=== PATIENT | male | born 2000 | race Caucasian/White ===

== ENCOUNTER 2019-02-11 22:03 | Emergency (ER) | payer OTHER ==
--- OUTSIDE RECORDS SUMMARY | 2019-02-11 22:36 | XMS REPORT | Continuity of Care Document ---
:2000 External Reference #:[id number] Author Name Melissa Moreno Care Team Providers Name Role Phone [facility] Primary Care Physician Unavailable Payers Date Identification Numbers Payment Provider Subscriber Policy Number: [id number] [employer] Student [employer] Jose Hunt PayID: [id number] [address] [place] [address] Advance Directives Description No Information Available Problems Description No Information Family History Date Family Member(s) Observation Comments General Cancer Social History Type Date Description Comments Sex Unknown Lives With Roommate Occupation Student ETOH Use Weekly Alcohol 10 drinks Tobacco Use Start: Unknown Patient has never smoked Smoking Status Reviewed: 01/15/19 Patient has never smoked Allergies, Adverse Reactions, Alerts Description No Known Drug Allergies Medications Description No Active Medications Immunizations Description No Information Available Vital Signs Date Vital Result Comment 01/15/2019 1:50pm Height 72 inches 6'0" Weight 190.00 lb Heart Rate 67 /min BP Systolic Sitting 118 mmHg BP Diastolic Sitting 88 mmHg Respiratory Rate 14 /min Pain Level 8 BMI (Body Mass Index) 25.8 kg/m2 Height Percentile 81 % Weight Percentile 89th Results Description No Information Available Procedures Description No Information Available Encounters Description No Information Available Plan of Treatment Future Appointment(s):02/14/2019 1:45 pm - Martin Modi MD at [facility]01/15/2019 - Martin Modi [id number] Sprain of other ligament of right ankle, initial encounterNew Therapy:Physical TherapyFollow up: Follow Up: 1 month
--- OUTSIDE RECORDS SUMMARY | 2019-02-11 22:36 | XMS REPORT | Continuity of Care Document ---
:2000 External Reference #:[id number] Author Name Melissa Moreno Care Team Providers Name Role Phone [facility] Primary Care Physician Unavailable Payers Date Identification Numbers Payment Provider Subscriber Policy Number: [id number] [employer] Student [employer] Jose Hunt PayID: [id number] [address] [place] [address] Advance Directives Description No Information Available Problems Description No Information Family History Date Family Member(s) Observation Comments General Cancer Social History Type Date Description Comments Sex Unknown Lives With Roommate Occupation Student ETOH Use Weekly Alcohol 10 drinks Tobacco Use Start: Unknown Patient has never smoked Smoking Status Reviewed: 01/31/19 Patient has never smoked Allergies, Adverse Reactions, Alerts Active Allergies Reaction Severity Comments Date Penicillin 01/31/2019 Inactive Allergies NKDA 01/15/2019 Medications Description No Active Medications Immunizations Description No Information Available Vital Signs Date Vital Result Comment 01/31/2019 2:23pm Height 72 inches 6'0" Weight 200.00 lb Heart Rate 83 /min BP Systolic Sitting 144 mmHg BP Diastolic Sitting 88 mmHg Respiratory Rate 14 /min Pain Level 0 BMI (Body Mass Index) 27.1 kg/m2 Height Percentile 81 % Weight Percentile 93rd 01/15/2019 1:50pm Height 72 inches 6'0" Weight 190.00 lb Heart Rate 67 /min BP Systolic Sitting 118 mmHg BP Diastolic Sitting 88 mmHg Respiratory Rate 14 /min Pain Level 8 BMI (Body Mass Index) 25.8 kg/m2 Height Percentile 81 % Weight Percentile 89th Results Description No Information Available Procedures Description No Information Available Encounters Type Date Location Provider Dx Diagnosis Office Visit 01/15/2019 [facility] Martin Modi [id number] Sprain of other [facility] of right ankle, initial encounter Plan of Treatment 01/15/2019 - Martin Moid [id number] Sprain of other ligament of right ankle, initial encounterNew Therapy:Physical TherapyFollow up:Follow Up: 1 month
--- NOTE | 2019-02-11 22:40 | ED ---
Palpitations / Dysrhythmia - HPI Summary HPI Summary: 18-year-old male presents with palpitation today. He states he was sitting in his room and felt that his heart was racing. He states he felt short of breath. Denies any chest pain. He states he feels tingly all over. This has never happened before. He has no medical illnesses. He denies any family history cardiac disease. Denies any drug or alcohol use. He states he now just feels numbness tingling in extremities. He did have a previous fracture to his leg about a month ago. His palpitations have resolved but he states just feels off. He denies any bowel pain. denies any fevers. No other symptoms. Hasn't taking anything for his symptoms. no SI or HI. states numbness and tingling is worst when he takes a deep breath. - History of Current Complaint Chief Complaint: EDDysrhythmPalp Time Seen by Provider: 02/11/19 22:11 - Allergy/Home Medications Allergies/Adverse Reactions: Allergies Allergy/AdvReac Type Severity Reaction Status Date / Time Penicillins Allergy Rash Verified 02/11/19 22:05 Home Medications: Home Medications NK [No Home Medications Reported] 02/11/19 [History Confirmed 02/11/19] PMH/Surg Hx/FS Hx/Imm Hx Endocrine/Hematology History: Denies: Hx Anticoagulant Therapy Cardiovascular History: Denies: Hx Hypertension - Immunization History Date of Tetanus Vaccine: utd Date of Influenza Vaccine: fall 2017 Infectious Disease History: No Infectious Disease History: Denies: Traveled Outside the [place] in Last 30 Days - Family History Known Family History: Negative: Cardiac Disease - Social History Alcohol Use: Weekly Substance Use Type: Reports: Excessive Caffeine Smoking Status (MU): Light Every Day Tobacco Smoker Review of Systems Negative: Fever Positive: Palpitations. Negative: Chest Pain Positive: Shortness Of Breath. Negative: Cough All Other Systems Reviewed And Are Negative: Yes Physical Exam Triage Information Reviewed: Yes Vital Signs On Initial Exam: Initial Vitals Temp Pulse Resp BP Pulse Ox 99.1 F 84 18 161/91 97 02/11/19 22:04 02/11/19 22:04 02/11/19 22:04 02/11/19 22:04 02/11/19 22:04 Vital Signs Reviewed: Yes Appearance: Positive: Well-Appearing Skin: Positive: Warm, Dry Head/Face: Positive: Normal Head/Face Inspection Eyes: Positive: Normal, Conjunctiva Clear ENT: Positive: Pharynx normal Respiratory/Lung Sounds: Positive: Clear to Auscultation, Breath Sounds Present Cardiovascular: Positive: Normal, RRR Abdomen Description: Positive: Nontender, Soft Bowel Sounds: Positive: Present Musculoskeletal: Positive: Normal Neurological: Positive: Normal Psychiatric: Positive: Anxious Diagnostics - Vital Signs Vital Signs Temp Pulse Resp BP Pulse Ox 02/11/19 22:04 99.1 F 84 18 161/91 97 - Laboratory Result Diagrams: 02/11/19 22:36 02/11/19 22:36 Lab Statement: Any lab studies that have been ordered have been reviewed, and results considered in the medical decision making process. - EKG No standard instances Cardiac Rate: NL EKG Rhythm: Sinus Rhythm Summary of EKG Findings: sinus rhythm Course/Dx - Course Course Of Treatment: 18-year-old male presents with palpitation today. He states he was sitting in his room and felt that his heart was racing. He states he felt short of breath. Denies any chest pain. He states he feels tingly all over. This has never happened before. He has no medical illnesses. He denies any family history cardiac disease. Denies any drug or alcohol use. He states he now just feels numbness tingling in extremities. He did have a previous fracture to his leg about a month ago. His palpitations have resolved but he states just feels off. He denies any bowel pain. denies any fevers. No other symptoms. Hasn't taking anything for his symptoms. On exam has normal exam but appears anxious. EKG shows sinus rhythm. wbc normal. potassium normal. troponin zero. d-dimer normal. magnesium low so gave supplement. thyroid normal. symptoms likely due to anxiety. patient understand and agrees with plan. - Diagnoses Differential Diagnosis/HQI/PQRI: Positive: Panic Disorder, Paroxymal SVT, Pulmonary Embolism Provider Diagnoses: Palpitations Discharge - Sign-Out/Discharge Documenting (check all that apply): Patient Departure Patient Received Moderate/Deep Sedation with Procedure: No - Discharge Plan Condition: Good Disposition: HOME Patient Education Materials: Heart Palpitations (ED) Referrals: No Primary Care Phys,NOPCP [Primary Care Provider] - Additional Instructions: symptoms likely due to anxiety Follow up with [facility] Return to ED if develop any new or worsening symptoms - Billing Disposition and Condition Condition: GOOD Disposition: Home
[2019-02-11 22:42] LABS: ABS Eosinophils 0.3 10^3/ul (0-0.6); ABS Lymphocytes 1.2 10^3/ul (1.0-4.8); ABS Monocytes 0.6 10^3/ul (0-0.8); ABS Neutrophils 3.5 10^3/ul (1.5-7.7); Eosinophil % 5.9 %; Hematocrit 44 % (42-52); Hemoglobin 15.1 g/dL (14.0-18.0); Lymphocyte % 21.5 %; Mean Corpuscular HGB Conc 34 g/dL (31-36); Mean Corpuscular Hemoglobin 31 pg (27-31); Mean Corpuscular Volume 91 fL (80-94); Mean Platelet Volume 9.1 fL (7.4-10.4); Platelet Count 149 10^3/uL (150-450); Red Cell Distribution Width 13 % (10.5-15); White Blood Count 5.6 10^3/uL (3.5-10.8)
[2019-02-11 23:00] LABS: Albumin 4.2 g/dL (3.2-5.2); BUN/Creatinine Ratio 14.2 (8-20); Calcium 8.8 mg/dL (8.6-10.3); EGFR African American 108.9 (>60); Globulin 2.1 g/dL (2-4); Magnesium 1.8 mg/dL (1.9-2.7); Potassium 3.8 mmol/L (3.5-5.0); Total Bilirubin 1.1 mg/dL (0.2-1.0); Total Protein 6.3 g/dL (6.4-8.9)
[2019-02-11] MEDS ORDERED: Magnesium Chloride EC TAB* 64 MG PO ONE (23:18)
[2019-02-11 23:27] LABS: TSH (Thyroid Stimulating Horm) 0.93 mcIU/mL (0.34-5.60)
[2019-02-11 23:43] VITALS: BP 120/70
== END 2019-02-11 23:45 | disposition home or self-care (01) ==
LOC: ED 22:03
DX: R00.2 Palpitations (principal); F17.210 Nicotine dependence, cigarettes, uncomplicated; R06.02 Shortness of breath; Z88.0 Allergy status to penicillin
CPT/HCPCS: 36415; 80053; 83605; 83735; 84443; 84484; 85025; 85379; 93005; 99282; A9270-GY